=== PATIENT | male | born 2000 | race Caucasian/White ===

== ENCOUNTER 2021-04-27 20:03 | Emergency (ER) | payer BC ==
[~2021-04-27] VITALS: Ht 165.1 cm; Wt 67.1 kg
[2021-04-27] MEDS ORDERED: CENTANY AT1 EACH TOP (20:45)
[2021-04-27] MEDS ORDERED: TRIAMCINOLONE A80 G2 TOP (20:45)
[2021-04-27 21:13] VITALS: BP 112/74
== END 2021-04-27 21:29 | disposition home or self-care (01) ==
LOC: M.ERS 20:03
DX: R21 Rash and other nonspecific skin eruption (principal)